=== PATIENT | female | born 1990 | race Caucasian/White ===

== ENCOUNTER 2017-12-24 00:13 | Emergency (ER) | payer SELFPAY ==
[~2017-12-24] VITALS: Ht 167.6 cm; Wt 67.1 kg
[2017-12-24] MEDS ORDERED: METHADONE (00:29)
[2017-12-24] MEDS ORDERED: HYDROMORPHONE 1 MG/1 ML DISP.SYRIN IV ONE ×2 (00:45→02:30)
[2017-12-24] MEDS ORDERED: ONDANSETRON 4 MG/2 ML VIAL IV ONE (00:45)
[2017-12-24] MEDS ORDERED: IV NORMAL SALINE 1000 ML BAG IV ONE (00:45)
[2017-12-24 00:56] LABS: BASOPHILS # (AUTO) 0.1 K/uL (0.0-8.0); BASOPHILS % (AUTO) 0.5 % (0.0-2.0); EOSINOPHILS # (AUTO) 0.4 K/uL (0.0-0.7); EOSINOPHILS % (AUTO) 2.3 % (0.0-7.0); HEMOGLOBIN 13.1 g/dL (10.9-14.3); LYMPHOCYTES # (AUTO) 2.4 K/uL (20.0-40.0); LYMPHOCYTES % (AUTO) 14.7 % (20.5-51.5); MEAN CORPUSCULAR HGB CONC 34 g/dL (32.3-35.6); MEAN CORPUSCULAR VOLUME 89.5 fL (75.5-95.3); MONOCYTES # (AUTO) 0.9 K/uL (2.0-10.0); MONOCYTES % (AUTO) 5.3 % (0.0-11.0); NEUTROPHILS # (AUTO) 12.7 K/uL (1.8-8.9); NEUTROPHILS % (AUTO) 77.2 % (38.5-71.5); PLATELET COUNT (AUTO) 246 K/uL (179-408); RED BLOOD CELL COUNT(AUTO) 4.36 MIL/uL (3.63-4.92); WHITE BLOOD COUNT (AUTO) 16.4 K/uL (3.8-11.8)
[2017-12-24] MEDS ORDERED: HYDROMORPHONE 2 MG/1 ML DISP.SYRIN ONE ×2 (01:02→02:22)
[2017-12-24] MEDS ORDERED: ONDANSETRON 4 MG/2 ML VIAL ONE (01:03)
[2017-12-24 01:11] LABS: BILIRUBIN,DIRECT 0.1 mg/dL (0.0-0.2); BILIRUBIN,TOTAL 0.3 mg/dL (0.2-1.0); CREATININE 0.8 mg/dL (0.6-1.3); POTASSIUM 4.1 mmol/L (3.5-5.1); TOTAL PROTEIN, SERUM 7.2 g/dL (6.4-8.2)
--- NOTE | 2017-12-24 01:21 | NUR ---
PT IN BED. PT'S VISITOR AT BEDSIDE. US AT BEDSIDE CONDUCTING ABDOMINAL/PELVIC SCAN. VSS. NO SIGNS/SYMPTOMS OF DISTRESS WITNESSED BY NURSE OR EXPRESSED BY PT.
[2017-12-24] MEDS ORDERED: IV NORMAL SALINE 100 ML ONE (01:44)
[2017-12-24] MEDS ORDERED: IOHEXOL 300MG/ML 100 ML INFUS..BTL ONE (01:44)
[2017-12-24] MEDS ORDERED: NORMAL SALINE FLUSH 10 ML DISP.SYRIN ONE (01:44)
--- NOTE | 2017-12-24 01:52 | NUR ---
PT IN ROUTE TO CT
--- NOTE | 2017-12-24 02:07 | NUR ---
PT BACK FROM CT
--- NOTE | 2017-12-24 02:18 | NUR ---
MD QUINN AT BEDSIDE REASSESSING PT PAIN
[2017-12-24] MEDS ORDERED: METRONIDAZOLE 500 MG TABLET PO ONE (03:00)
[2017-12-24] MEDS ORDERED: CIPROFLOXACIN HCL 250 MG TABLET PO ONE (03:00)
[2017-12-24] MEDS ORDERED: CIPROFLOXACIN HCL 250 MG TABLET ONE (03:03)
[2017-12-24] MEDS ORDERED: METRONIDAZOLE 500 MG TABLET ONE (03:03)
--- NOTE | 2017-12-24 03:18 | NUR ---
Patient discharged to home in stable conditon. Written and verbal after care instructions given. Patient verbalizes understanding of instructions. MD Stout recommend hospital admission; however, patient refused. Peripheral IV removed. Patient able to ambulate unassisted with steady gait. Patient left with all personal belongings.
[2017-12-24 03:21] VITALS: BP 115/58
== END 2017-12-24 03:20 | disposition home or self-care (01) ==
LOC: ER 00:15
DX: K52.9 Noninfective gastroenteritis and colitis, unspecified (principal); F11.20 Opioid dependence, uncomplicated; Z79.891 Long term (current) use of opiate analgesic
CPT/HCPCS: 36415; 76856; 83690; 84703; 85025; A4663; J1170; J2405; J3490; J7030; Q9967

== ENCOUNTER 2021-03-23 11:19 | Inpatient (IN) | payer OTHER ==
[~2021-03-23] VITALS: Ht 167.6 cm; Wt 64.9 kg
[~2021-03-23 11:19] MED LIST: METHADONE
[2021-03-23] MEDS ORDERED: OLANZAPINE 10 MG VIAL IM ONE (12:00)
[2021-03-23 12:25] LABS: HEMATOCRIT 39.7 % (31.2-41.9); MEAN CORPUSCULAR HEMOGLOBIN 29.3 uug (24.7-32.8); PLATELET COUNT (AUTO) 290 K/uL (179-408)
[2021-03-23 12:34] LABS: CREATININE 0.8 mg/dL (0.6-1.3); POTASSIUM 4.7 mmol/L (3.5-5.1)
[2021-03-23 12:51] LABS: BILIRUBIN,TOTAL 0.3 mg/dL (0.2-1.0); TOTAL PROTEIN, SERUM 7.4 g/dL (6.4-8.2)
[2021-03-23] MEDS ORDERED: DEXAMETHASONE SOD PHOSPHATE 4 MG INJ IV ONE (13:00)
[2021-03-23] MEDS ORDERED: CEFTRIAXONE 1 G in IV DEXTROSE 5% 50 ML IV ONE (13:00)
[2021-03-23] MEDS ORDERED: IV NORMAL SALINE 1000 ML BAG IV ONE (13:00)
[2021-03-23] MEDS ORDERED: AZITHROMYCIN IV 500 MG in IV DEXTROSE 5% 250 ML IV ONE (13:00)
[2021-03-23] MEDS ORDERED: CEFTRIAXONE /D5W 50ML IVPB **ER PYXIS IV ONE (13:13)
[2021-03-23] MEDS ORDERED: AZITHROMYCIN 500MG/ D5W 250ML IVPB **ER PYXIS ONLY IV ONE (13:13)
[2021-03-23] MEDS ORDERED: DEXAMETHASONE SOD PHOSPHATE 4 MG INJ ONE (13:14)
--- NOTE | 2021-03-23 13:27 | NUR ---
lunch tray provided for pt.
[2021-03-23] MEDS ORDERED: METH10TA2 PO (13:28)
--- NOTE | 2021-03-23 13:50 | NUR ---
per pt's insurance, pt will be transfered to [facility]. Dr. Villatoro talked to Dr. Arce from [facility]. pt agreed to be transfered, signed the transfer paper.
--- NOTE | 2021-03-23 16:33 | NUR ---
called [facility] intake, no updates available at this point per Melanie.
--- NOTE | 2021-03-23 16:54 | NUR ---
regal authorized that the pt be admitted here.
[2021-03-23 17:00] VITALS: BP 114/67
--- NOTE | 2021-03-23 17:15 | NUR ---
pt transfered to floor in stable condition, with covid guidelines. Addendum: 03/23/21 at 1747 by JOSHUA pt reamined on the O2 4 litre via nc, sat 97-8%.
--- NOTE | 2021-03-23 17:20 | NUR ---
NURSE ADMISSION Admitted to room 324, via gurney but nurse brought patient to wrong room. Able to ambulate from that room to 324 with ER nurse. VS at 1700- 98.6 F-83-18, BP 114/67, O2 sat 99% with 3 l/min per nasal cannula. Alert and oriented x 4.
[2021-03-23] MEDS ORDERED: MAGNESIUM HYDROXIDE 30 ML LIQUID UDC PO PRN (17:45)
[2021-03-23] MEDS ORDERED: ONDANSETRON 4 MG/2 ML VIAL IV PRN (17:45)
[2021-03-23] MEDS ORDERED: ACETAMINOPHEN 325 MG TABLET PO PRN (17:45)
[2021-03-23] MEDS ORDERED: Z GUARD REMEDY PASTE 57 GM TUBE TOP PRN (17:45)
--- NOTE | 2021-03-23 19:00 | NUR ---
Alert oriented, no sob no chest pain, noted with non productive cough, no complain of pain, tele monitor. sinus rthythm, will noitfy md due to cough.
--- NOTE | 2021-03-23 19:25 | NUR ---
NURSE REPORT Report given to night nurse Ezequiel to assume care of patient. Patient needs order for Methadone and Nicotine patch. Dr Gerber was notified to order Methadone 40 mg daily to be started tomorrow at 0600 and that patient needs Nicotine patch since she smokes 1 pack a day. Night nurse to followup on orders. Jeanie Barrientos RN
[2021-03-23 20:15] VITALS: BP 106/61
--- NOTE | 2021-03-23 20:32 | NUR ---
NOTIFY [facility] PROF REGARDING PATIENT IS A SMOKER, WITH ORDER OF NICOTINE PATCH 21MG DAILY.
[2021-03-23] MEDS: ENOXAPARIN SODIUM 40 MG/0.4 ML DISP.SYRIN SQ SCH (21:33)
--- NOTE | 2021-03-23 22:25 | NUR ---
Patient has non productive cough notify Dr Duran with order.
[2021-03-23] MEDS: GUAIFENESIN/DEXTROMETHORPHAN 5 ML UDC PO PRN (22:44)
[2021-03-23] MEDS: ZOLPIDEM 5 MG TABLET PO PRN (22:59)
[2021-03-24 00:09] VITALS: BP 111/59
[2021-03-24] MEDS: GUAIFENESIN/DEXTROMETHORPHAN 5 ML UDC PO PRN (04:10)
[2021-03-24 04:18] VITALS: BP 100/47
[2021-03-24] MEDS: PANTOPRAZOLE SODIUM 40 MG TABLET.DR PO SCH (06:26)
--- NOTE | 2021-03-24 06:36 | NUR ---
Patient alert oriented, no sob no chest pain, tele monitor sinus rhythm at this time, given cough medications due coughing spell, on 2 liters for help, patient short of breath due to coughing spell saturation within normal range, Patient remain on droplet precaution, afebrile, cont to monitor.
[2021-03-24 06:44] LABS: HEMATOCRIT 36.7 % (31.2-41.9); MEAN CORPUSCULAR HEMOGLOBIN 29.7 uug (24.7-32.8); MEAN CORPUSCULAR VOLUME 88.7 fL (75.5-95.3); PLATELET COUNT (AUTO) 306 K/uL (179-408)
[2021-03-24 06:56] LABS: MAGNESIUM 2.2 mg/dL (1.8-2.4); PHOSPHOROUS 3.1 mg/dL (2.5-4.9)
--- NOTE | 2021-03-24 06:58 | NUR ---
Did follow up on medication Methadone, and patient state that she takes 40mg Methadone every morning, notify Carmen Eastman suggest to notify MD in morning and pharmacy to verify methadone dose from previous clinic, endorse to next shift. Notify patient regarding the methadone issue, cont to monitor.s
--- NOTE | 2021-03-24 08:00 | NUR ---
PATIENT STILL WITH ON AND OFF SOB ON EXERTION WITH 3L NC. BREATHING TECHNIQUE REINFORCED. CONTINUE WITH CURRENT TX PLAN. AFEBRILE
[2021-03-24] MEDS: NICOTINE 21 MG/24HR PATCH TD SCH (08:27)
[2021-03-24] MEDS: DEXAMETHASONE SOD PHOSPHATE 4 MG INJ IV SCH (08:28)
[2021-03-24] MEDS ORDERED: IPRATROPIUM/ALBUTEROL SULFATE 14.7 GM INHALER INH PRN (11:00)
[2021-03-24 12:00] VITALS: BP 111/73
--- NOTE | 2021-03-24 12:00 | NUR ---
METHADONE RESTARTED ORDERED. PATIENT REMAINS STABLE. COVID PCR SPECIMEN SENT TO LAB
[2021-03-24] MEDS: METHADONE HCL 10 MG TABLET PO SCH (12:59)
[2021-03-24] MEDS: CEFTRIAXONE 1 G in IV DEXTROSE 5% 50 ML IV SCH (12:59)
[2021-03-24] MEDS: AZITHROMYCIN IV 500 MG in IV DEXTROSE 5% 250 ML IV SCH (13:34)
[2021-03-24] MEDS: IPRATROPIUM/ALBUTEROL SULFATE 14.7 GM INHALER INH SCH ×3 (13:54→19:24)
[2021-03-24 16:00] VITALS: BP 103/57
--- NOTE | 2021-03-24 16:06 | NUR ---
1500 COMBIVENT INHALER NOT GIVEN , TOO CLOSE FROM NEXT DOSE
[2021-03-24 20:15] VITALS: BP 113/68
[2021-03-24] MEDS: ZOLPIDEM 5 MG TABLET PO PRN (20:32)
[2021-03-24] MEDS: ENOXAPARIN SODIUM 40 MG/0.4 ML DISP.SYRIN SQ SCH (20:33)
--- NOTE | 2021-03-24 22:40 | NUR ---
Pt resting in bed. Axo x4, no acute distress noted, calm and cooperative. VSS on RA saturating @95% denies any SOB, no cough noted. NSR on monitor. Patient remains on droplet precaution, afebrile. All due medications administered and tolerated well. Administered ambien per pt request. IV LAC flushed, patent and intact. Needs attended too. Safety measure maintained. Call light and personal items within reach. Will continue to monitor
[2021-03-25 00:15] VITALS: BP 111/61
[2021-03-25 04:10] VITALS: BP 110/67
[2021-03-25] MEDS: PANTOPRAZOLE SODIUM 40 MG TABLET.DR PO SCH (06:12)
[2021-03-25] MEDS: IPRATROPIUM/ALBUTEROL SULFATE 14.7 GM INHALER INH SCH ×3 (06:13→15:07)
[2021-03-25] MEDS: METHADONE HCL 10 MG TABLET PO SCH (08:27)
[2021-03-25] MEDS: DEXAMETHASONE SOD PHOSPHATE 4 MG INJ IV SCH (08:28)
[2021-03-25] MEDS: NICOTINE 21 MG/24HR PATCH TD SCH (08:31)
--- NOTE | 2021-03-25 10:33 | NUR ---
Patient has been cleared from a pulmonary perspective by Dr. Rousseau - pending approval from primary to [facility]
[2021-03-25 11:16] VITALS: BP 104/61
--- NOTE | 2021-03-25 12:00 | NUR ---
received change of shift report, pt a/ox4, on tele monitor NSR, saturating 94% on room air, no signs of distress, no reports of pain at this time. pt ambulatory, iv on the left ac 20g, will continue to monitor.
[2021-03-25] MEDS: CEFTRIAXONE 1 G in IV DEXTROSE 5% 50 ML IV SCH (12:32)
[2021-03-25] MEDS ORDERED: AMOX-430 PO (13:32)
[2021-03-25] MEDS ORDERED: NICO-780 TD (13:32)
[2021-03-25] MEDS ORDERED: METH4TAB3 PO (13:32)
[2021-03-25] MEDS: AZITHROMYCIN IV 500 MG in IV DEXTROSE 5% 250 ML IV SCH (14:49)
--- NOTE | 2021-03-25 15:30 | NUR ---
PT PCR RESULTS CAME BACK NEGATIVE PER DENIS. WILL CONTINUE TO MONITOR
[2021-03-25 15:35] VITALS: BP 106/65
--- NOTE | 2021-03-25 16:00 | NUR ---
PT DISCHARGED HOME WITH ALL BELONGINGS, AND PAPERWORK. PT A/OX4, ADMITTED FOR SOB, PT DISCHARGED ON ROOM AIR, SATURATING ON 96%, NO SIGNS OF DISTRESS, NO REPORTS OF PAIN. PT AMBULATORY AND ASSISTED TO HER CAR. PT RECEIVED ALL EDUCATION INFORMATION REGARDING DIAGNOSIS AND MEDICATIONS.
== END 2021-03-25 16:00 | disposition home or self-care (01) | DRG 139 ==
LOC: ER 11:19 → TELE3 17:16 → EDBD 17:16 → TELE3 17:54
PROVIDERS: ADMIT Student in an Organized Health Care Education/Training Program; ATTEND Student in an Organized Health Care Education/Training Program
DX: J15.9 Unspecified bacterial pneumonia (principal); J96.01 Acute respiratory failure with hypoxia; Z20.822 Contact with and (suspected) exposure to COVID-19; J45.909 Unspecified asthma, uncomplicated; Z80.3 Family history of malignant neoplasm of breast; Z82.49 Family history of ischemic heart disease and other diseases of the circulatory system; F17.210 Nicotine dependence, cigarettes, uncomplicated; F11.20 Opioid dependence, uncomplicated
CPT/HCPCS: 36415; 70030-TC; 71045; 83605; 83615; 83735; 84100; 85025; 86140; 87040; 87070; 93005; A4663; G0378; J0456; J0696; J1100; J1650; J3490; J7030; J7050; J7060; U0003

== ENCOUNTER 2023-09-21 13:59 | Emergency (ER) | payer OTHER ==
[~2023-09-21] VITALS: Ht 167.6 cm; Wt 65.8 kg
[~2023-09-21 13:59] MED LIST changes: +AMOX-430 PO; +METH-817 PO; +METH4TAB3 PO; -METHADONE; +NICO-780 TD
[2023-09-21 14:09] VITALS: O2SAT 99
[2023-09-21 16:01] LABS: BASOPHILS # (AUTO) 0.1 K/UL (0.0-0.2); EOSINOPHILS # (AUTO) 0.4 K/uL (0.0-0.7); EOSINOPHILS % (AUTO) 6.6 % (0.0-7.0); HEMATOCRIT 35.6 % (31.2-41.9); HEMOGLOBIN 11.9 g/dL (10.9-14.3); LYMPHOCYTES % (AUTO) 31.1 % (20.5-51.5); MEAN CORPUSCULAR HEMOGLOBIN 29.6 uug (24.7-32.8); MEAN CORPUSCULAR HGB CONC 33 g/dL (32.3-35.6); MEAN CORPUSCULAR VOLUME 88.7 fL (75.5-95.3); MONOCYTES # (AUTO) 0.3 K/uL (0.1-1.30); MONOCYTES % (AUTO) 5.5 % (0.0-11.0); NEUTROPHILS # (AUTO) 3.5 K/uL (1.8-8.9); NEUTROPHILS % (AUTO) 55.8 % (38.5-71.5); PLATELET COUNT (AUTO) 243 K/uL (179-408); RED BLOOD CELL COUNT(AUTO) 4.02 MIL/uL (3.63-4.92); WHITE BLOOD COUNT (AUTO) 6.3 K/uL (3.8-11.8)
[2023-09-21 16:02] LABS: DIFFERENTIAL COMMENT 1
[2023-09-21 16:12] LABS: *URINE HCG, QUAL NEGATIVE (NEGATIVE)
[2023-09-21 16:16] LABS: *BILIRUBIN,URIN NEGATIVE (NEGATIVE); *BLOOD, URINE NEGATIVE (NEGATIVE); *CLARITY,URINE SLIGHTLY CLOUDY (CLEAR); *COLOR,URINE YELLOW (YELLOW); *KETONES,URINE NEGATIVE (NEGATIVE); *PROTEIN,URINE NEGATIVE (NEGATIVE); *UROBILINOGEN,URINE 0.2 E.U./dl (NORMAL); LEUKOCYTE ESTERASE ,URINE TRACE (NEGATIVE); NITRITE, URINE POSITIVE (NEGATIVE); PH,URINE 5.5 (5.0-8.0); UGLUCOSE NEGATIVE (NEGATIVE)
[2023-09-21 17:05] LABS: CALCIUM 8.5 mg/dL (8.5-10.1); CREATININE 0.9 mg/dL (0.6-1.3)
[2023-09-21 17:06] LABS: ALBUMIN 3.3 g/dL (3.4-5.0); BILIRUBIN,TOTAL 0.4 mg/dL (0.2-1.0)
[2023-09-21 17:22] LABS: *AMPHETAMINE, URINE NEGATIVE (NEGATIVE); *BARBITURATE, URINE NEGATIVE (NEGATIVE); *BENZODIAZEPINE, URINE NEGATIVE (NEGATIVE); *CANNABINOID, URINE NEGATIVE (NEGATIVE); *COCCAINE, URINE NEGATIVE (NEGATIVE); *OPIATE, URINE POSITIVE (NEGATIVE); *PHENCYCLIDINE SCREEN,URINE NEGATIVE (NEGATIVE); FENTANYL, URINE POSITIVE (NEGATIVE)
[2023-09-21 17:50] LABS: BACTERIA,URINE MANY /HPF (NONE SEEN); RBC,URINE 0-3 /HPF (0-3); SQUAMOUS EPITHELIAL CELL,UR MODERATE /HPF (NONE SEEN)
[2023-09-21] MEDS ORDERED: HYDROCODONE/APAP 5-325MG TABLET PO ONE (18:00)
[2023-09-21] MEDS ORDERED: METR500T PO (18:26)
[2023-09-21] MEDS ORDERED: HYDROCODONE/APAP 5-325MG TABLET ONE (18:54)
== END 2023-09-21 19:15 | disposition home or self-care (01) ==
LOC: ER 13:59
DX: N76.0 Acute vaginitis (principal); R91.1 Solitary pulmonary nodule; R10.2 Pelvic and perineal pain; R10.9 Unspecified abdominal pain; F17.200 Nicotine dependence, unspecified, uncomplicated; Z79.899 Other long term (current) drug therapy; Z20.822 Contact with and (suspected) exposure to COVID-19; Z60.2 Problems related to living alone
CPT/HCPCS: 36415; 71045; 71250; 84484; 84703; 85025; 93005; A4606; A4663